=== PATIENT | male | born 1980 | race Caucasian/White ===

== ENCOUNTER 2017-02-17 23:57 | Emergency (ER) | payer OTHER ==
[2017-02-18] MEDS ORDERED: Rocephin 1000 MG INJ IM ONE (00:32)
[2017-02-18] MEDS ORDERED: Adacel Vial IM ONE ×2 (00:34→00:53)
[2017-02-18] MEDS ORDERED: XYLOCAINE 1%/Epi 1:100000 MDV 20 ML IJ ONE (00:34)
[2017-02-18] MEDS ORDERED: BACIGUENT PACKET TP ONE (00:34)
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
[2017-02-18] MEDS ORDERED: Rocephin 1000 MG INJ ONE (00:53)
[2017-02-18] MEDS ORDERED: BACIGUENT PACKET ONE (00:53)
[2017-02-18] MEDS ORDERED: XYLOCAINE 1% HCL 20 ML MDV ONE ×2 (00:53→06:29)
[2017-02-18 02:52] VITALS: BP 122/65; PULSE 68; O2SAT 98
[2017-02-18] MEDS ORDERED: XYLOCAINE 1% HCL 20 ML MDV IJ ONE (06:10)
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
== END 2017-02-18 02:54 | disposition home or self-care (01) ==
LOC: ED 23:57
PROC: 0HQ1XZZ Repair Face Skin, External Approach (ICD-10-PCS; principal; 2017-02-18)
DX: S01.81XA Laceration without foreign body of other part of head, initial encounter (principal); T14.8 Other injury of unspecified body region; V19.3XXA Pedal cyclist (driver) (passenger) injured in unspecified nontraffic accident, initial encounter
CPT/HCPCS: 12013; 70450; 73130; 90471; 90715; 96372; 99284; J0696; A9270-GY

== ENCOUNTER 2020-08-15 20:29 | Emergency (ER) | payer OTHER ==
[2020-08-15] MEDS ORDERED: XYLOCAINE 1% HCL 20 ML MDV ONE (20:38)
[2020-08-15] MEDS ORDERED: XYLOCAINE 1% HCL 20 ML MDV IJ ONE (20:45)
[2020-08-15] MEDS ORDERED: BACIGUENT PACKET TP ONE (21:08)
[2020-08-15] MEDS ORDERED: BACIGUENT PACKET ONE (21:10)
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
[2020-08-15 21:16] VITALS: BP 124/87; PULSE 72
[2020-08-15 21:17] VITALS: O2SAT 98
== END 2020-08-15 21:20 | disposition home or self-care (01) ==
LOC: ED 20:29
DX: S61.212A Laceration without foreign body of right middle finger without damage to nail, initial encounter (principal)
CPT/HCPCS: 12001; 96372; 99283; A9270-GY